=== PATIENT | female | born 1970 | race Asian ===

== ENCOUNTER 2016-12-27 15:16 | Emergency (ER) | payer SELFPAY ==
[~2016-12-27] VITALS: Ht 157.5 cm; Wt 72.7 kg
[2016-12-27 15:20] VITALS: Ht 157.5 cm; Wt 72.7 kg
== END 2016-12-27 20:00 | disposition left against medical advice (07) ==
LOC: E/R 15:16
DX: Z53.21 Procedure and treatment not carried out due to patient leaving prior to being seen by health care provider (principal)